=== PATIENT | female | born 2000 | race Hispanic/Latino ===

== ENCOUNTER → 2019-11-28 | Outpatient (REF) | payer OTHER | LOC: M LAB REF 21:15 | PROVIDERS: ATTEND Physician Assistant Medical | DX: R50.9 Fever, unspecified (principal); R05 Cough ==

== ENCOUNTER 2020-01-05 18:51 | Emergency (ER) | payer OTHER ==
[~2020-01-05] VITALS: Ht 160 cm; Wt 128.9 kg
[2020-01-05] MEDS ORDERED: EXCETAB33 PO (18:57)
[2020-01-05 19:04] VITALS: BP 144/67
[2020-01-05] MEDS ORDERED: ACETAMINOPHEN 325 MG TAB PO ONE (19:30)
--- NOTE | 2020-01-05 22:45 | REP ---
LEFT KNEE SERIES, FOUR VIEWS: HISTORY: Injury in a fall. FINDINGS: Four views of the left knee demonstrate normal bones, joints, and soft tissues. No fracture or subluxation is seen. There is no sunrise view included. IMPRESSION: Negative four-view left knee series. No fracture noted. Electronically Signed by Marko Alvarez MD 01/06/2020 07:04 A
--- NOTE | 2020-01-05 22:46 | REP ---
LEFT HAND SERIES, FOUR VIEWS: HISTORY: Tenderness after a fall. FINDINGS: Four views of the left hand show overall normal mineralization. No fracture or subluxation is seen. Soft tissues are unremarkable. IMPRESSION: Negative left hand radiographs. Electronically Signed by Marko Alvarez MD 01/06/2020 07:05 A
== END 2020-01-05 21:02 | disposition home or self-care (01) ==
LOC: M ED 18:51
DX: S80.02XA Contusion of left knee, initial encounter (principal); S80.211A Abrasion, right knee, initial encounter; S80.212A Abrasion, left knee, initial encounter; M25.542 Pain in joints of left hand; W10.8XXA Fall (on) (from) other stairs and steps, initial encounter; Y92.410 Unspecified street and highway as the place of occurrence of the external cause; Z88.8 Allergy status to other drugs, medicaments and biological substances

== ENCOUNTER → 2020-09-13 | Outpatient (CLI) | payer SELFPAY ==
[~2020-09-13] MED LIST: EXCETAB33 PO
== END ==
LOC: M LABSMTC 14:11
PROVIDERS: ATTEND Pediatrics
DX: Z20.822 Contact with and (suspected) exposure to COVID-19 (principal)

== ENCOUNTER → 2020-10-06 | Outpatient (CLI) | payer SELFPAY | LOC: M LABSMTC 11:23 | PROVIDERS: ATTEND Pediatrics | DX: Z20.822 Contact with and (suspected) exposure to COVID-19 (principal) ==

== ENCOUNTER → 2021-01-23 | Outpatient (CLI) | payer SELFPAY | LOC: M LABSMTC 14:07 | PROVIDERS: ATTEND Pediatrics | DX: Z11.52 Encounter for screening for COVID-19 (principal) ==

== ENCOUNTER 2021-10-07 10:02 | Emergency (ER) | payer OTHER ==
[~2021-10-07] VITALS: Ht 160 cm; Wt 125.1 kg
[2021-10-07] MEDS ORDERED: ZOLO50TA PO (10:44)
[2021-10-07 15:04] VITALS: BP 123/76
== END 2021-10-07 16:20 | disposition home or self-care (01) ==
LOC: M ED 10:02
DX: U07.1 COVID-19 (principal); M54.50 Low back pain, unspecified; Z88.8 Allergy status to other drugs, medicaments and biological substances
CPT/HCPCS: 71045; 80053; 81001; 84702; 85025; 96374; 99284; J1885

== ENCOUNTER → 2021-11-08 | Outpatient (REF) | payer OTHER ==
[~2021-11-08] MED LIST changes: +ZOLO50TA PO
[2021-11-08 22:20] LABS: URINE PREG TEST NEGATIVE (NEGATIVE)
== END ==
LOC: M LAB REF 22:11
PROVIDERS: ATTEND Physician Assistant Medical
DX: Z32.02 Encounter for pregnancy test, result negative (principal)